=== PATIENT | male | born 1995 | race Asian ===

== ENCOUNTER 2024-08-26 00:50 | Emergency (ER) | payer OTHER ==
[~2024-08-26] VITALS: Ht 177.8 cm; Wt 79.4 kg
[2024-08-26 01:02] VITALS: BP 138/72
[2024-08-26] MEDS ORDERED: Ibuprofen 600 MG Tab PO ONE (01:40)
[2024-08-26] MEDS ORDERED: Acetaminophen 500 MG Tab PO ONE (01:40)
== END 2024-08-26 03:19 | disposition home or self-care (01) ==
LOC: ER 00:50
DX: S99.921A Unspecified injury of right foot, initial encounter (principal); Y08.89XA Assault by other specified means, initial encounter; Y99.0 Civilian activity done for income or pay
CPT/HCPCS: 73630; 99283-25; A9270